=== PATIENT | female | born 2000 | race Caucasian/White ===

== ENCOUNTER 2021-01-03 09:19 | Emergency (ER) | payer OTHER ==
[~2021-01-03] VITALS: Ht 167.6 cm; Wt 72.6 kg
== END 2021-01-03 13:22 | disposition home or self-care (01) ==
LOC: ER 09:19
DX: N93.8 Other specified abnormal uterine and vaginal bleeding (principal)

== ENCOUNTER 2021-01-24 23:31 | Emergency (ER) | payer OTHER ==
[~2021-01-24] VITALS: Ht 165.1 cm; Wt 74.8 kg
[2021-01-25] MEDS ORDERED: ACETAMINOPHEN650 M2 PO (01:11)
== END 2021-01-25 02:30 | disposition home or self-care (01) ==
LOC: ER 23:31
DX: A90 Dengue fever [classical dengue] (principal); R11.11 Vomiting without nausea; B34.9 Viral infection, unspecified; E86.0 Dehydration

== ENCOUNTER 2021-04-11 12:00 | Emergency (ER) | payer OTHER ==
[~2021-04-11] VITALS: Ht 167.6 cm; Wt 63.5 kg
[~2021-04-11 12:00] MED LIST: ACETAMINOPHEN650 M2 PO
== END 2021-04-11 14:26 | disposition home or self-care (01) ==
LOC: ER 12:00
DX: R30.0 Dysuria (principal); F41.0 Panic disorder [episodic paroxysmal anxiety]

== ENCOUNTER 2021-04-14 02:42 | Emergency (ER) | payer OTHER ==
[~2021-04-14] VITALS: Ht 162.6 cm; Wt 74.8 kg
[2021-04-14] MEDS ORDERED: ORASEP SPRAY30 ML MM (03:40)
[2021-04-14] MEDS ORDERED: AMOXICILLIN875 MG PO (03:40)
== END 2021-04-14 03:48 ==
LOC: ER 02:42
DX: J03.80 Acute tonsillitis due to other specified organisms (principal); B96.89 Other specified bacterial agents as the cause of diseases classified elsewhere

== ENCOUNTER 2021-04-26 20:40 | Emergency (ER) | payer OTHER ==
[~2021-04-26] VITALS: Ht 165.1 cm; Wt 70.8 kg
[~2021-04-26 20:40] MED LIST changes: +AMOXICILLIN875 MG PO; +ORASEP SPRAY30 ML MM
[2021-04-27] MEDS ORDERED: ZITHROMAX500 MG PO (02:06)
== END 2021-04-27 02:25 | disposition home or self-care (01) ==
LOC: ER 20:40
DX: R07.0 Pain in throat (principal)

== ENCOUNTER 2021-08-08 11:31 | Emergency (ER) | payer OTHER ==
[~2021-08-08] VITALS: Ht 165.1 cm; Wt 84.8 kg
[~2021-08-08 11:31] MED LIST changes: +ZITHROMAX500 MG PO
[2021-08-08] MEDS ORDERED: MOTION SICKNESS25 M1 PO (17:27)
== END 2021-08-08 17:29 | disposition home or self-care (01) ==
LOC: ER 11:31
DX: N91.2 Amenorrhea, unspecified (principal); R42 Dizziness and giddiness; R51.9 Headache, unspecified

== ENCOUNTER 2021-10-14 07:45 | Emergency (ER) | payer OTHER ==
[~2021-10-14] VITALS: Ht 165.1 cm; Wt 67.1 kg
[~2021-10-14 07:45] MED LIST changes: +MOTION SICKNESS25 M1 PO
[2021-10-14] MEDS ORDERED: ORPHENADRINE C100 MG PO (11:13)
[2021-10-14] MEDS ORDERED: DICLOFENAC POTA50 MG PO (11:13)
== END 2021-10-14 11:34 | disposition home or self-care (01) ==
LOC: ER 07:45
DX: M94.0 Chondrocostal junction syndrome [Tietze] (principal); N91.1 Secondary amenorrhea

== ENCOUNTER 2021-10-20 14:20 | Outpatient (CLI) | payer OTHER ==
[~2021-10-20 14:20] MED LIST changes: +DICLOFENAC POTA50 MG PO; +ORPHENADRINE C100 MG PO
== END 2021-10-20 14:45 | disposition home or self-care (01) ==
LOC: PPH VACUNA 14:20
PROVIDERS: ATTEND Emergency Medicine Pediatric Emergency Medicine
DX: Z23 Encounter for immunization (principal)

== ENCOUNTER 2022-01-05 10:15 | Emergency (ER) | payer OTHER ==
[~2022-01-05] VITALS: Ht 165.1 cm; Wt 79.4 kg
[2022-01-05] MEDS ORDERED: NORFLEX100MG PO (16:54)
[2022-01-05] MEDS ORDERED: AZITHROMYCIN500 MG PO (16:54)
[2022-01-05] MEDS ORDERED: KETO10TA2 PO (16:54)
== END 2022-01-05 17:19 | disposition home or self-care (01) ==
LOC: ER 10:15
DX: A49.3 Mycoplasma infection, unspecified site (principal); M62.838 Other muscle spasm; R51.9 Headache, unspecified; Z20.822 Contact with and (suspected) exposure to COVID-19

== ENCOUNTER 2022-01-21 23:19 | Emergency (ER) | payer OTHER ==
[~2022-01-21] VITALS: Ht 162.6 cm; Wt 81.6 kg
[~2022-01-21 23:19] MED LIST changes: +AZITHROMYCIN500 MG PO; +KETO10TA2 PO; +NORFLEX100MG PO
[2022-01-22] MEDS ORDERED: ZOFRAN8 MG PO (05:26)
[2022-01-22] MEDS ORDERED: PEPCID40 MG PO (05:26)
== END 2022-01-22 05:35 ==
LOC: ER 23:19
DX: K29.70 Gastritis, unspecified, without bleeding (principal); Z20.822 Contact with and (suspected) exposure to COVID-19

== ENCOUNTER 2022-04-22 10:16 | Emergency (ER) | payer OTHER ==
[~2022-04-22] VITALS: Ht 165.1 cm; Wt 79.4 kg
[~2022-04-22 10:16] MED LIST changes: +PEPCID40 MG PO; +ZOFRAN8 MG PO
== END 2022-04-22 23:24 | disposition home or self-care (01) ==
LOC: ER 10:16
DX: O20.9 Hemorrhage in early pregnancy, unspecified (principal); Z3A.01 Less than 8 weeks gestation of pregnancy; Z20.822 Contact with and (suspected) exposure to COVID-19

== ENCOUNTER 2022-08-24 07:52 | Outpatient (CLI) | payer OTHER | END 2022-08-24 08:14 | disposition home or self-care (01) | LOC: SONOGRAMA 07:52 | DX: D69.6 Thrombocytopenia, unspecified (principal) ==

== ENCOUNTER 2022-08-24 08:56 | Emergency (ER) | payer OTHER ==
[~2022-08-24] VITALS: Ht 165.1 cm; Wt 79.4 kg
== END 2022-08-24 11:40 | disposition home or self-care (01) ==
LOC: ER 08:56
DX: N94.6 Dysmenorrhea, unspecified (principal)

== ENCOUNTER 2022-09-07 07:16 | Outpatient (CLI) | payer OTHER | END 2022-09-07 07:34 | disposition home or self-care (01) | LOC: TOM 07:16 | DX: R10.11 Right upper quadrant pain (principal); K85.90 Acute pancreatitis without necrosis or infection, unspecified ==

== ENCOUNTER 2022-09-07 08:13 | Outpatient (CLI) | payer OTHER | END 2022-09-07 08:15 | disposition home or self-care (01) | LOC: LAB 08:13 | PROVIDERS: ATTEND Radiology Diagnostic Radiology | DX: N39.0 Urinary tract infection, site not specified (principal); R10.11 Right upper quadrant pain; R85.9 Unspecified abnormal finding in specimens from digestive organs and abdominal cavity; D69.6 Thrombocytopenia, unspecified ==

== ENCOUNTER 2022-09-25 07:29 | Outpatient (CLI) | payer OTHER | END 2022-09-25 07:33 | disposition home or self-care (01) | LOC: NUCLEAR 07:29 | PROVIDERS: ATTEND Internal Medicine Gastroenterology | DX: R10.11 Right upper quadrant pain (principal) | CPT/HCPCS: 78227; A9537 ==

== ENCOUNTER 2022-12-07 11:26 | Outpatient (CLI) | payer OTHER | END 2022-12-07 12:35 | disposition home or self-care (01) | LOC: PRENATAL 11:26 | PROVIDERS: ATTEND Obstetrics & Gynecology Maternal & Fetal Medicine | DX: O43.90 Unspecified placental disorder, unspecified trimester (principal); Z36 Encounter for antenatal screening of mother; O36.80X0 Pregnancy with inconclusive fetal viability, not applicable or unspecified; Z3A.12 12 weeks gestation of pregnancy ==

== ENCOUNTER 2023-02-02 08:08 | Outpatient (CLI) | payer OTHER | END 2023-02-02 09:10 | disposition home or self-care (01) | LOC: PRENATAL 08:08 | PROVIDERS: ATTEND Obstetrics & Gynecology Maternal & Fetal Medicine | DX: O35.9XX0 Maternal care for (suspected) fetal abnormality and damage, unspecified, not applicable or unspecified (principal); O35.3XX0 Maternal care for (suspected) damage to fetus from viral disease in mother, not applicable or unspecified; O43.90 Unspecified placental disorder, unspecified trimester; Z3A.20 20 weeks gestation of pregnancy ==

== ENCOUNTER 2023-03-23 08:45 | Outpatient (CLI) | payer OTHER | END 2023-03-23 10:00 | disposition home or self-care (01) | LOC: PRENATAL 08:45 | PROVIDERS: ATTEND Obstetrics & Gynecology Maternal & Fetal Medicine | DX: O26.849 Uterine size-date discrepancy, unspecified trimester (principal); O45.90 Premature separation of placenta, unspecified, unspecified trimester; Z3A.27 27 weeks gestation of pregnancy ==

== ENCOUNTER 2023-05-07 22:58 | Outpatient (CLI) | payer OTHER | END 2023-05-08 11:50 | disposition home or self-care (01) | LOC: OBS/DEL 22:58 | PROVIDERS: ATTEND Obstetrics & Gynecology | DX: O26.893 Other specified pregnancy related conditions, third trimester (principal); Z3A.33 33 weeks gestation of pregnancy; Z88.6 Allergy status to analgesic agent ==

== ENCOUNTER 2023-05-24 09:26 | Outpatient (CLI) | payer OTHER | END 2023-05-24 10:46 | disposition home or self-care (01) | LOC: PRENATAL 09:26 | PROVIDERS: ATTEND Obstetrics & Gynecology Maternal & Fetal Medicine | DX: O26.849 Uterine size-date discrepancy, unspecified trimester (principal); O36.8199 Decreased fetal movements, unspecified trimester, other fetus; O43.90 Unspecified placental disorder, unspecified trimester; O99.891 Other specified diseases and conditions complicating pregnancy; Z3A.36 36 weeks gestation of pregnancy ==

== ENCOUNTER 2023-06-14 14:40 | Inpatient (IN) | payer OTHER ==
[~2023-06-14] VITALS: Ht 165.1 cm; Wt 90.7 kg
[2023-06-22 09:53] LABS: HEMATOCRIT 37.1 % (36.0-45.00); HEMOGLOBIN 12.5 g/dL (12.0-15.00); MEAN CELL VOLUME 77.7 fL (80.00-100.00); MEAN CORPUSCULAR HEMOGLOBIN 26.1 pg (27.00-32.0); MEAN CORPUSCULAR HGB CONC 33.6 g/dl (32.0-36.0); RED BLOOD COUNT 4.78 M/uL (4.00-6.00); RED CELL DISTRIBUTION WIDTH 15.9 % (11.5-14.5)
[2023-06-22 10:23] LABS: PARTIAL THROMBOPLASTIN TIME 25.8 SECONDS (22.0-34.0)
[2023-06-22 10:27] LABS: PLATELET COUNT 102 K/uL (150-450)
[2023-06-22 17:11] LABS: ABG PH 7.329 (7.35-7.45); ABG PO2 31.8 mmHg (80-100); BASE EXCESS -4.6 mmol/l; BICARBONATE 21.1 mmol/l (23-25); SaO2 54.6 %
[2023-06-23 06:57] LABS: HEMATOCRIT 36.5 % (36.0-45.00); HEMOGLOBIN 11.6 g/dL (12.0-15.00); MEAN CELL VOLUME 79.2 fL (80.00-100.00); MEAN CORPUSCULAR HEMOGLOBIN 25.2 pg (27.00-32.0); MEAN CORPUSCULAR HGB CONC 31.8 g/dl (32.0-36.0); RED BLOOD COUNT 4.61 M/uL (4.00-6.00); RED CELL DISTRIBUTION WIDTH 15.6 % (11.5-14.5)
[2023-06-23 07:02] LABS: PLATELET COUNT 96 K/uL (150-450)
== END 2023-06-24 14:20 | disposition home or self-care (01) | DRG 807 ==
LOC: LDR 06-22 06:47 → OB/GYN 06-22 06:47 → LDR 06-22 07:28 → OB/GYN 06-22 13:15
PROVIDERS: ADMIT Obstetrics & Gynecology; ATTEND Obstetrics & Gynecology
PROC: 10E0XZZ Delivery of Products of Conception, External Approach (ICD-10-PCS; principal; 2023-06-22)
PROC: 0KQM0ZZ Repair Perineum Muscle, Open Approach (ICD-10-PCS; 2023-06-22)
PROC: 4A1HXCZ Monitoring of Products of Conception, Cardiac Rate, External Approach (ICD-10-PCS; 2023-06-22)
DX: O70.1 Second degree perineal laceration during delivery (principal); Z37.0 Single live birth; Z3A.40 40 weeks gestation of pregnancy; Z20.822 Contact with and (suspected) exposure to COVID-19

== ENCOUNTER 2024-07-24 03:11 | Emergency (ER) | payer OTHER ==
[~2024-07-24] VITALS: Ht 167.6 cm; Wt 68.0 kg
[~2024-07-24 03:11] MED LIST changes: +PRENA1 TRUE CO1 EACH PO
[2024-07-24] MEDS ORDERED: HYOSCYAMINE SULFATE 0.125 MG TAB.SUBL SL STA (05:13)
[2024-07-24] MEDS ORDERED: PROMETHAZINE HCL 50 MG/ML AMPUL IM STA (05:13)
[2024-07-24] MEDS ORDERED: LACTOBACILLUS ACIDOPHILUS 1 CAP CAP PO STA (05:14)
[2024-07-24] MEDS ORDERED: FAMOTIDINE/PF 20 MG/2 ML VIAL IV PUSH STA (05:14)
[2024-07-24] MEDS ORDERED: 0.9 % SODIUM CHLORIDE 1,000 ML IV ONE (05:15)
[2024-07-24 06:38] LABS: HEMATOCRIT 41.3 % (36.0-45.00); HEMOGLOBIN 14.1 g/dL (12.0-15.00); MEAN CELL VOLUME 84.9 fL (80.00-100.00); MEAN CORPUSCULAR HEMOGLOBIN 28.9 pg (27.00-32.0); RED BLOOD COUNT 4.87 M/uL (4.00-6.00); RED CELL DISTRIBUTION WIDTH 13.7 % (11.5-14.5)
[2024-07-24 06:56] LABS: PLATELET COUNT 72 K/uL (150-450)
[2024-07-24 07:11] LABS: CALCIUM 9.3 mg/dL (8.5-10.1); CREATININE SERUM 0.71 mg/dL (0.55-1.02); GFR 99.51; POTASSIUM 4.11 mEq/L (3.5-5.1)
[2024-07-24 09:52] LABS: PH,URINE 5.5 (5.0-8.0); URINE APPEARANCE Clear; URINE BILIRRUBIN Negative (NEGATIVE); URINE BLOOD Negative; URINE COLOR Yellow; URINE GLUCOSE Negative (NEGATIVE); URINE LEUKOCYTE Negative; URINE NITRATE Negative; URINE PROTEIN Negative (NEGATIVE)
[2024-07-24 09:54] LABS: URINE BACTERIA 304.8 uL (0.0-1933); URINE EPITHELIAL CELLS 14.8 uL (0.0-38.8); URINE RBC 2.2 uL (0.0-20.8); URINE WBC 10.3 uL (0.0-23.2)
[2024-07-24 10:01] LABS: URINE CAST 0.15 uL (0.0-1.40); URINE KETONE 40 (NEGATIVE)
== END 2024-07-24 13:54 | disposition home or self-care (01) ==
LOC: ER 03:13
PROVIDERS: General Practice
DX: K52.89 Other specified noninfective gastroenteritis and colitis (principal)

== ENCOUNTER 2024-07-31 11:29 | Outpatient (CLI) | payer OTHER | END 2024-07-31 11:38 | disposition home or self-care (01) | LOC: SONOGRAMA 11:29 | DX: N93.9 Abnormal uterine and vaginal bleeding, unspecified (principal) ==

== ENCOUNTER 2024-09-14 09:03 | Outpatient (CLI) | payer OTHER | END 2024-09-14 09:04 | disposition home or self-care (01) | LOC: PRENATAL 09:03 | PROVIDERS: ATTEND Obstetrics & Gynecology Maternal & Fetal Medicine | DX: O36.80X0 Pregnancy with inconclusive fetal viability, not applicable or unspecified (principal); Z36.82 Encounter for antenatal screening for nuchal translucency; Z3A.14 14 weeks gestation of pregnancy ==

== ENCOUNTER → 2024-11-13 10:52 | Outpatient (CLI) | payer OTHER | END | disposition home or self-care (01) | LOC: PRENATAL 10:52 | PROVIDERS: ATTEND Obstetrics & Gynecology Maternal & Fetal Medicine | DX: O44.00 Complete placenta previa NOS or without hemorrhage, unspecified trimester (principal); Z3A.22 22 weeks gestation of pregnancy ==

== ENCOUNTER → 2024-12-26 13:34 | Outpatient (CLI) | payer OTHER | END | disposition home or self-care (01) | LOC: PRENATAL 13:34 | PROVIDERS: ATTEND Obstetrics & Gynecology Maternal & Fetal Medicine | DX: O26.849 Uterine size-date discrepancy, unspecified trimester (principal); Z3A.29 29 weeks gestation of pregnancy ==

== ENCOUNTER 2025-01-13 01:37 | Outpatient (CLI) | payer OTHER ==
[2025-01-13 00:35] VITALS: BP 113/70
[2025-01-13 01:58] LABS: PH,URINE 6.5 (5.0-8.0); URINE APPEARANCE Clear; URINE BACTERIA 74.6 uL (0.0-1933); URINE BILIRRUBIN Negative (NEGATIVE); URINE BLOOD Negative; URINE COLOR Yellow; URINE EPITHELIAL CELLS 6.7 uL (0.0-38.8); URINE GLUCOSE Negative (NEGATIVE); URINE KETONE Negative (NEGATIVE); URINE LEUKOCYTE Trace; URINE NITRATE Negative; URINE PROTEIN Negative (NEGATIVE); URINE UROBILINOGEN 0.2 E.U./dl; URINE WBC 4.8 uL (0.0-23.2)
[2025-01-13 02:23] LABS: HEMATOCRIT 35.9 % (36.0-45.00); HEMOGLOBIN 12.2 g/dL (12.0-15.00); MEAN CORPUSCULAR HGB CONC 34.1 g/dl (32.0-36.0); RED BLOOD COUNT 4.22 M/uL (4.00-6.00); RED CELL DISTRIBUTION WIDTH 14.2 % (11.5-14.5)
[2025-01-13 02:24] LABS: PLATELET COUNT 78 K/uL (150-450); URINE RBC 1.7 uL (0.0-20.8)
[2025-01-13 03:16] VITALS: BP 104/61
[2025-01-13 07:08] VITALS: BP 106/72
[2025-01-13 11:37] VITALS: BP 108/73
[2025-01-13 13:15] VITALS: BP 108/76
[2025-01-13 13:43] VITALS: BP 108/76
== END 2025-01-13 13:18 | disposition home or self-care (01) ==
LOC: OBS/DEL 01:37
PROVIDERS: Obstetrics & Gynecology; ATTEND Obstetrics & Gynecology
DX: O26.893 Other specified pregnancy related conditions, third trimester (principal); R10.2 Pelvic and perineal pain; Z3A.30 30 weeks gestation of pregnancy

== ENCOUNTER 2025-02-05 10:02 | Outpatient (CLI) | payer OTHER | END 2025-02-05 10:03 | disposition home or self-care (01) | LOC: PRENATAL 10:02 | PROVIDERS: ATTEND Obstetrics & Gynecology Maternal & Fetal Medicine | DX: O26.849 Uterine size-date discrepancy, unspecified trimester (principal); O36.8199 Decreased fetal movements, unspecified trimester, other fetus; Z3A.35 35 weeks gestation of pregnancy ==

== ENCOUNTER 2025-03-06 13:00 | Inpatient (IN) | payer OTHER ==
[~2025-03-06] VITALS: Ht 165.1 cm; Wt 3.6 kg
[2025-03-13] MEDS ORDERED: AMPICILLIN SODIUM 2,000 MG VIAL IV ONE (06:15)
[2025-03-13] MEDS ORDERED: RINGERS SOLUTION,LACTATED 1,000 ML IV SCH (06:15)
[2025-03-13 06:18] VITALS: BP 116/63
[2025-03-13 06:34] VITALS: BP 116/63
[2025-03-13 07:01] LABS: BASO % 0.2 % (0.1-1.2); HEMATOCRIT 37.5 % (34.1-44.9); HEMOGLOBIN 12.9 g/dL (11.2-15.7); LYMPH # 2.02 (1.18-3.74); LYMPH % 20.8 % (19.3-53.1); MEAN CORPUSCULAR HEMOGLOBIN 28.1 pg (25.6-32.2); MONO # 0.85 (0.24-0.82); MONO % 8.8 % (4.7-12.5); NEUT # 6.67 (1.56-6.13); NEUT % 68.9 % (34.0-71.1); RED BLOOD COUNT 4.59 M/uL (3.93-5.22); RED CELL DISTRIBUTION WIDTH 13.7 % (11.6-14.4)
[2025-03-13 07:03] LABS: PLATELET COUNT 114 K/uL (163-369)
[2025-03-13 07:16] LABS: PH,URINE 6.5 (5.0-8.0); URINE APPEARANCE Clear; URINE BILIRRUBIN Negative (NEGATIVE); URINE BLOOD Negative; URINE COLOR Yellow; URINE GLUCOSE Negative (NEGATIVE); URINE KETONE Negative (NEGATIVE); URINE LEUKOCYTE Moderate; URINE NITRATE Negative; URINE PROTEIN Negative (NEGATIVE); URINE UROBILINOGEN 0.2 E.U./dl
[2025-03-13 07:20] LABS: URINE BACTERIA 466.1 uL (0.0-1933); URINE EPITHELIAL CELLS 21.5 uL (0.0-38.8); URINE WBC 39.5 uL (0.0-23.2)
[2025-03-13 07:21] LABS: URINE CAST 0.14 uL (0.0-1.40); URINE RBC 1.3 uL (0.0-20.8)
[2025-03-13 07:34] VITALS: BP 116/67
[2025-03-13 07:37] LABS: INR < 0.93; PROTHROMBIN TIME 10.2 SECONDS (9.0-11.5)
[2025-03-13] MEDS ORDERED: MORPHINE SULFATE 4 MG/ML CARTRIDGE IV ONE ×2 (08:30→17:00)
[2025-03-13] MEDS ORDERED: OXYTOCIN 500 ML IV SCH (08:30)
[2025-03-13] MEDS ORDERED: AMPICILLIN SODIUM 1,000 MG VIAL IV SCH (09:00)
[2025-03-13 11:11] VITALS: BP 114/67; O2SAT 100
[2025-03-13 15:20] VITALS: BP 118/71
[2025-03-13 16:42] VITALS: BP 136/77
[2025-03-13] MEDS ORDERED: ERYTHROMYCIN BASE OPHT 1GM EACH TUBE OP ONE (18:47)
[2025-03-13] MEDS ORDERED: OXYTOCIN 10 UNITS/ML VIAL ONE (18:47)
[2025-03-13] MEDS ORDERED: KETOROLAC TROMETHAMINE 60 MG VIAL IM SCH (20:45)
[2025-03-13] MEDS ORDERED: MORPHINE SULFATE 4 MG/ML VIAL IV SCH (21:00)
[2025-03-13] MEDS ORDERED: MORPHINE SULFATE 4 MG/ML VIAL IV ONE (22:05)
[2025-03-14] MEDS ORDERED: AMPICILLIN SODIUM 1,000 MG VIAL ONE (01:41)
[2025-03-14 02:39] VITALS: BP 109/71
[2025-03-14 07:05] LABS: BASO % 0.1 % (0.1-1.2); EOS # 0.02 (0.04-0.54); EOS % 0.1 % (0.7-7.0); HEMATOCRIT 33.2 % (34.1-44.9); HEMOGLOBIN 11.5 g/dL (11.2-15.7); LYMPH # 1.94 (1.18-3.74); LYMPH % 14.2 % (19.3-53.1); MEAN CORPUSCULAR HEMOGLOBIN 28.1 pg (25.6-32.2); MONO # 1.09 (0.24-0.82); NEUT # 10.52 (1.56-6.13); NEUT % 77.3 % (34.0-71.1); RED BLOOD COUNT 4.09 M/uL (3.93-5.22); RED CELL DISTRIBUTION WIDTH 13.4 % (11.6-14.4)
[2025-03-14 07:07] LABS: PLATELET COUNT 111 K/uL (163-369)
[2025-03-14] MEDS ORDERED: OxyCODONE HCL/APAP UD (PERCOCET) PO PRN (08:00)
[2025-03-14 08:35] VITALS: BP 106/64
[2025-03-14] MEDS ORDERED: PNV,CALCIUM 72/IRON/FOLIC ACID 1 TAB TABLET PO SCH (09:00)
[2025-03-14] MEDS ORDERED: DOCUSATE SODIUM 100MG CAP PO SCH (09:00)
[2025-03-14] MEDS ORDERED: SIMETHICONE 125 MG CAPSULE PO SCH (09:00)
[2025-03-14] MEDS ORDERED: OxyCODONE HCL 5 MG TABLET (ROXICODONE) PO SCH (09:24)
[2025-03-14] MEDS ORDERED: ACETAMINOPHEN 325 MG TABLET PO PRN (09:30)
[2025-03-14 16:33] VITALS: BP 112/73
[2025-03-15] VITALS: BP 116/77
[2025-03-15 08:07] VITALS: BP 121/82
[2025-03-15 17:07] VITALS: BP 111/73
[2025-03-16 01:00] VITALS: BP 101/68
[2025-03-16 08:54] VITALS: BP 110/72
== END 2025-03-16 11:59 | disposition home or self-care (01) | DRG 785 ==
LOC: OB/GYN 03-13 05:59 → LDR 03-13 05:59 → O/R 03-13 19:21 → OB/GYN 03-14 00:29
PROVIDERS: ADMIT Obstetrics & Gynecology; ATTEND Obstetrics & Gynecology
PROC: 0UB70ZZ Excision of Bilateral Fallopian Tubes, Open Approach (ICD-10-PCS; 2025-03-13)
PROC: 4A1HXCZ Monitoring of Products of Conception, Cardiac Rate, External Approach (ICD-10-PCS; 2025-03-13)
PROC: 10D00Z1 Extraction of Products of Conception, Low, Open Approach (ICD-10-PCS; principal; 2025-03-13 21:30)
DX: O82 Encounter for cesarean delivery without indication (principal); O62.1 Secondary uterine inertia; Z30.2 Encounter for sterilization; Z3A.39 39 weeks gestation of pregnancy; Z37.0 Single live birth